=== PATIENT | female | born 1985 | race Caucasian/White ===

== ENCOUNTER 2017-01-02 11:12 | Emergency (ER) | payer OTHER ==
[~2017-01-02] VITALS: Ht 154.9 cm; Wt 76.8 kg
[~2017-01-02 11:12] MED LIST: BACTRIM,SEPT1 TABLET PO; CLEOCIN300 MG PO; DYNAPEN500 MG PO; KEFLEX500 MG PO; METHadone HCl PO; MOTRIN800 MG PO; Motrin PO; NOHOMEMEDS; SERTRALINE HCL100 MG; SUBOXONE 8 M1 TABLET; ULTRAM50 MG PO; oxyCODONE PO
[2017-01-02] MEDS ORDERED: DOXYCYCLINE MO100 MG PO (15:01)
[2017-01-02 15:21] VITALS: BP 132/79
== END 2017-01-02 15:37 | disposition home or self-care (01) ==
LOC: EME 11:12
PROC: 0H9DXZZ Drainage of Right Lower Arm Skin, External Approach (ICD-10-PCS; principal; 2017-01-02)
DX: L02.413 Cutaneous abscess of right upper limb (principal); F17.200 Nicotine dependence, unspecified, uncomplicated
CPT/HCPCS: 99281; 99285; J1885; J7050

== ENCOUNTER 2017-01-27 19:01 | Inpatient (IN) | payer OTHER ==
[~2017-01-27] VITALS: Ht 154.9 cm; Wt 76.5 kg
[~2017-01-27 19:01] MED LIST changes: +DOXYCYCLINE MO100 MG PO
[2017-01-27 19:48] LABS: HEMATOCRIT 40.2 % (36.0-46.0); MCHC 34.8 G/DL (30.0-36.0); MCV 83.2 FL (83-99); MEAN PLAT.VOLUME 9.8 uM^3 (9.5-12.4); PLATELET COUNT 252 K/uL (156-360); RBC DIS.WIDTH-CV 14.6 % (11.8-14.6); RBC DIS.WIDTH-SD 44.1 % (39-53); RED BLOOD COUNT 4.83 M/uL (3.80-5.20); WHITE BLOOD COUNT 7.1 K/uL (4.1-10.2)
[2017-01-27 20:01] LABS: CHLORIDE 98 mEq/L (99-109); POTASSIUM 3.4 mEq/L (3.7-5.4); SODIUM 139 mEq/L (136-147)
[2017-01-27 20:04] LABS: GLUCOSE 112 mg/dL (70-99)
[2017-01-27 20:05] LABS: ANION GAP 14 MEQ/L (2-14)
[2017-01-27 20:06] LABS: TOTAL BILIRUBIN 11.3 mg/dL (0.0-1.0)
[2017-01-27 20:07] LABS: ALKALINE PHOSPHATASE 294 IU/L (3-129); GFR ESTIMATE (CALCULATED) > 59 mL/min/
[2017-01-27 20:08] LABS: UREA NITROGEN (BUN) 7 mg/dL (9-23)
[2017-01-27 20:16] LABS: QUANTITATIVE HCG < 4.0 MIU/ML
[2017-01-27 20:41] LABS: LIPASE 17 U/L (1.0-51.0)
[2017-01-27 21:50] LABS: ADD MIUA? YES; BILIRUBIN NEGATIVE; BLOOD NEGATIVE; COLOR AMBER ((YELLOW)); GLUCOSE (STRIP) NEGATIVE; KETONES NEGATIVE; LEUKOCYTES MODERATE; NITRITE NEGATIVE; PROTEIN (STRIP) NEGATIVE; SPECIFIC GRAVITY 1.005 (1.000-1.030)
[2017-01-27 22:11] LABS: AMORPHOUS URATES CRYSTALS 1+; BACTERIA 1+ /HPF; CALCIUM OXALATE CRYSTALS 1+ /HPF; EPITHELIAL CELLS 2+ /HPF; MUCUS NONE SEEN /LPF; RED BLOOD CELLS 0-5 /HPF (0-5); UCUL ADDED? NO; WHITE BLOOD CELLS 0-5 /HPF (0-5)
[2017-01-28 01:31] LABS: INTER. NORMALIZED RATIO 1.1; PROTHROMBIN TIME 12.4 SEC (10.2-12.9)
[2017-01-28 01:33] LABS: PTT 36.7 SEC (25-37)
[2017-01-28 01:46] LABS: DIRECT BILIRUBIN 7.1 mg/dL (0.0-0.3); SALICYLATE < 5.0 MG/DL (15-30)
[2017-01-28 02:35] VITALS: BP 119/67
[2017-01-28 04:57] LABS: BARBITUATES QUANT VALUE 0 NG/ML; BENZODIAZEPINES QUANT VALUE 0 NG/ML; BENZODIAZEPINES, URINE SCREEN Negative (200 ng/mL); MARIJUANA QUANT VALUE 0 NG/ML; PHENCYCLIDINE QUANT VALUE 0 NG/ML
[2017-01-28 07:05] LABS: HEMATOCRIT 34.7 % (36.0-46.0); MCH 29.3 PG (29.0-34.0); MCHC 34.3 G/DL (30.0-36.0); MCV 85.5 FL (83-99); MEAN PLAT.VOLUME 9.9 uM^3 (9.5-12.4); PLATELET COUNT 206 K/uL (156-360); RBC DIS.WIDTH-CV 15.1 % (11.8-14.6); RBC DIS.WIDTH-SD 47.8 % (39-53); RED BLOOD COUNT 4.06 M/uL (3.80-5.20); WHITE BLOOD COUNT 5.5 K/uL (4.1-10.2)
[2017-01-28 07:09] LABS: INTER. NORMALIZED RATIO 1.1; PROTHROMBIN TIME 12.6 SEC (10.2-12.9)
[2017-01-28 07:43] VITALS: BP 109/59
[2017-01-28 07:52] LABS: ALKALINE PHOSPHATASE 215 IU/L (3-129); ANION GAP 9 MEQ/L (2-14); CHLORIDE 105 MEQ/L (99-109); GFR ESTIMATE (CALCULATED) > 59 mL/min/; GLUCOSE 126 mg/dL (70-99); LIPASE 16 U/L (1.0-51.0); POTASSIUM 3.9 MEQ/L (3.7-5.4); SAMPLE HEMOLYSIS CHECK 0; SAMPLE ICTERIC CHECK 2; SAMPLE LIPEMIA CHECK 0; SERUM ETHYL ALCOHOL < 10 mg/dL; SODIUM 139 MEQ/L (136-147); TOTAL BILIRUBIN 9.4 MG/DL (0.0-1.0); UREA NITROGEN (BUN) 7 mg/dL (9-23)
[2017-01-28 10:26] LABS: HBSG INDEX 0.19
[2017-01-28 10:28] LABS: ANTI-HEPATITIS A VIRUS (IGM) Nonreactive; HAV INDEX 0.19
[2017-01-28 10:29] LABS: ANTI-HEPATITIS B CORE (IGM) Nonreactive; HBC IgM INDEX 0.19
[2017-01-28 11:32] VITALS: BP 118/63
[2017-01-28 16:10] VITALS: BP 117/79
[2017-01-28 19:27] VITALS: BP 137/84
[2017-01-28 23:08] VITALS: BP 117/76
[2017-01-29 05:33] LABS: HEMATOCRIT 36.1 % (36.0-46.0); MCH 28.4 PG (29.0-34.0); MCV 86.2 FL (83-99); PLATELET COUNT 217 K/uL (156-360); RBC DIS.WIDTH-CV 14.9 % (11.8-14.6); RBC DIS.WIDTH-SD 47.7 % (39-53); RED BLOOD COUNT 4.19 M/uL (3.80-5.20)
[2017-01-29 06:18] LABS: ALKALINE PHOSPHATASE 195 IU/L (3-129); ANION GAP 8 MEQ/L (2-14); CHLORIDE 106 MEQ/L (99-109); DIRECT BILIRUBIN 5.2 mg/dL (0.0-0.3); GFR ESTIMATE (CALCULATED) > 59 mL/min/; GLUCOSE 101 mg/dL (70-99); POTASSIUM 4.3 MEQ/L (3.7-5.4); SAMPLE HEMOLYSIS CHECK 0; SAMPLE ICTERIC CHECK 2; SAMPLE LIPEMIA CHECK 0; SODIUM 142 MEQ/L (136-147); TOTAL BILIRUBIN 8.2 MG/DL (0.0-1.0); UREA NITROGEN (BUN) 5 mg/dL (9-23)
[2017-01-29 07:57] VITALS: BP 132/75
[2017-01-30 13:13] LABS: HCV RNA (IU/mL) 25555 IU/mL (<15)
[2017-01-30 22:10] LABS: MITOCHONDRIAL (M2) ANTIBODIES+ <=20.0 U (<=20.0)
[2017-01-31 22:16] LABS: HCV RNA (LOG IU/mL) 4.41 (<1.18)
== END 2017-01-29 13:24 | disposition home or self-care (01) | DRG 442 ==
LOC: EME 19:01 → RME 19:01 → 3EAST 01-28 01:00 → EDOF 01-28 01:00 → ENRESERV 01-28 01:05 → 3EAST 01-28 02:34
PROVIDERS: Hospitalist; Internal Medicine Gastroenterology; Physician Assistant
DX: K72.00 Acute and subacute hepatic failure without coma (principal); B19.20 Unspecified viral hepatitis C without hepatic coma; F11.20 Opioid dependence, uncomplicated; J02.9 Acute pharyngitis, unspecified; R05 Cough; F17.210 Nicotine dependence, cigarettes, uncomplicated
CPT/HCPCS: 71020; 76705; 80048; 80053; 80074; 80076; 80306 90; 81003; 82140; 82248; 82390; 83516 90; 83605; 83690; 84702; 85027; 85610; 85730; 86038; 86256 90; 86376 90; 87522 90; 99281; 99285; G0480; J1644; J7030

== ENCOUNTER 2017-02-06 12:17 | Emergency (ER) | payer OTHER ==
[~2017-02-06] VITALS: Ht 154.9 cm; Wt 76.7 kg
[2017-02-06 13:36] LABS: CHLORIDE 105 mEq/L (99-109); SODIUM 141 mEq/L (136-147)
[2017-02-06 13:38] LABS: GLUCOSE 110 mg/dL (70-99)
[2017-02-06 13:40] LABS: ANION GAP 10 MEQ/L (2-14)
[2017-02-06 13:42] LABS: ALKALINE PHOSPHATASE 135 IU/L (3-129); GFR ESTIMATE (CALCULATED) > 59 mL/min/
[2017-02-06 13:43] LABS: UREA NITROGEN (BUN) 8 mg/dL (9-23)
[2017-02-06 13:45] LABS: HEMATOCRIT 40.9 % (36.0-46.0); MCH 28.6 PG (29.0-34.0); MCV 84.2 FL (83-99); MEAN PLAT.VOLUME 9.5 uM^3 (9.5-12.4); PLATELET COUNT 271 K/uL (156-360); RBC DIS.WIDTH-SD 42.8 % (39-53); RED BLOOD COUNT 4.86 M/uL (3.80-5.20); WHITE BLOOD COUNT 7.7 K/uL (4.1-10.2)
[2017-02-06 13:51] LABS: QUANTITATIVE HCG < 4.0 MIU/ML
[2017-02-06 15:19] LABS: ADD MIUA? NO; BILIRUBIN NEGATIVE; BLOOD NEGATIVE; COLOR YELLOW ((YELLOW)); GLUCOSE (STRIP) NEGATIVE; KETONES NEGATIVE; LEUKOCYTES NEGATIVE; NITRITE NEGATIVE; PROTEIN (STRIP) NEGATIVE; SPECIFIC GRAVITY 1.012 (1.000-1.030); UCUL ADDED? NO; UROBILINOGEN 0.2 MG/DL (0.2-1.0)
[2017-02-06] MEDS ORDERED: ZOFRAN4 MG PO (15:29)
[2017-02-06] MEDS ORDERED: CLONIDINE HCL0.1 MG PO (15:29)
[2017-02-06 16:46] VITALS: BP 132/89
== END 2017-02-06 16:46 | disposition home or self-care (01) ==
LOC: EME 12:17
PROVIDERS: Emergency Medicine
DX: F11.23 Opioid dependence with withdrawal (principal); R11.2 Nausea with vomiting, unspecified; R19.7 Diarrhea, unspecified; J34.89 Other specified disorders of nose and nasal sinuses; F17.200 Nicotine dependence, unspecified, uncomplicated
CPT/HCPCS: 80053; 81003; 84702; 85027; 99281; 99284; J2765; J7030

== ENCOUNTER 2017-05-28 11:39 | Emergency (ER) | payer OTHER ==
[~2017-05-28] VITALS: Ht 165.1 cm; Wt 69.9 kg
[~2017-05-28 11:39] MED LIST changes: +CLONIDINE HCL0.1 MG PO; +ZOFRAN4 MG PO
[2017-05-28] MEDS ORDERED: NARCAN4 MG NS (12:48)
[2017-05-28 12:58] VITALS: BP 129/88
[2017-05-28 14:38] LABS: HEMATOCRIT 32.3 % (36.0-46.0); HEMOGLOBIN 11.4 G/DL (11.9-15.5); MCH 29.6 PG (29.0-34.0); MCHC 35.3 G/DL (30.0-36.0); MCV 83.9 FL (83-99); PLATELET COUNT 143 K/uL (156-360); RBC DIS.WIDTH-CV 12.1 % (11.8-14.6); RBC DIS.WIDTH-SD 36.9 % (39-53); RED BLOOD COUNT 3.85 M/uL (3.80-5.20); WHITE BLOOD COUNT 7.5 K/uL (4.1-10.2)
[2017-05-28 14:47] LABS: CHLORIDE 104 mEq/L (99-109); POTASSIUM 3.9 mEq/L (3.7-5.4); SODIUM 138 mEq/L (136-147)
[2017-05-28 14:48] LABS: GLUCOSE 113 mg/dL (70-99)
[2017-05-28 14:52] LABS: CREATININE 0.7 mg/dL (0.6-1.3); GFR ESTIMATE (CALCULATED) > 59 mL/min/
[2017-05-28 14:53] LABS: UREA NITROGEN (BUN) 10 mg/dL (9-23)
[2017-05-28 15:00] LABS: QUANTITATIVE HCG < 4.0 MIU/ML
[2017-05-28] MEDS ORDERED: ADDERALL XR 3030 MG PO (19:35)
== END 2017-05-28 14:57 | disposition home or self-care (01) ==
LOC: EME 11:39
PROVIDERS: Emergency Medicine
DX: T40.1X1A Poisoning by heroin, accidental (unintentional), initial encounter (principal); F32.9 Major depressive disorder, single episode, unspecified; F17.200 Nicotine dependence, unspecified, uncomplicated
CPT/HCPCS: 71045; 80048; 84702; 85027; 93005; 99281; 99285; J2310

== ENCOUNTER 2017-05-28 17:30 | Inpatient (IN) | payer OTHER ==
[~2017-05-28] VITALS: Ht 172.7 cm; Wt 69.5 kg
[~2017-05-28 17:30] MED LIST changes: +NARCAN4 MG NS
[2017-05-28 17:51] LABS: HEMATOCRIT 37.9 % (36.0-46.0); HEMOGLOBIN 13.3 G/DL (11.9-15.5); MCH 29.4 PG (29.0-34.0); MCHC 35.1 G/DL (30.0-36.0); MCV 83.8 FL (83-99); PLATELET COUNT 171 K/uL (156-360); RBC DIS.WIDTH-SD 36.7 % (39-53); RED BLOOD COUNT 4.52 M/uL (3.80-5.20); WHITE BLOOD COUNT 9.2 K/uL (4.1-10.2)
[2017-05-28 18:01] LABS: CHLORIDE 100 mEq/L (99-109); POTASSIUM 3.9 mEq/L (3.7-5.4); SODIUM 137 mEq/L (136-147)
[2017-05-28 18:03] LABS: GLUCOSE 93 mg/dL (70-99)
[2017-05-28 18:06] LABS: SERUM ETHYL ALCOHOL < 10 mg/dL
[2017-05-28 18:07] LABS: CREATININE 0.8 mg/dL (0.6-1.3); GFR ESTIMATE (CALCULATED) > 59 mL/min/
[2017-05-28 18:08] LABS: UREA NITROGEN (BUN) 10 mg/dL (9-23)
[2017-05-28 18:16] LABS: QUANTITATIVE HCG < 4.0 MIU/ML
[2017-05-28] MEDS ORDERED: ADDERALL XR 3030 MG PO (19:35)
[2017-05-28 20:11] VITALS: BP 122/58
[2017-05-28 20:26] VITALS: BP 104/56
[2017-05-29 07:37] VITALS: BP 93/54
[2017-05-29 15:42] VITALS: BP 94/50
[2017-05-30 07:37] VITALS: BP 84/46
[2017-05-30 10:19] VITALS: BP 84/47
[2017-05-30 16:04] VITALS: BP 108/56
[2017-05-31 07:34] VITALS: BP 109/58
[2017-05-31 16:33] VITALS: BP 109/56
[2017-06-01 07:49] VITALS: BP 90/58
== END 2017-06-01 09:58 | disposition other institution (70) | DRG 897 ==
LOC: EME 17:30 → EDOF 19:19 → 1WEST 19:19 → ENRESERV 20:05 → 1WEST 20:06
PROVIDERS: Emergency Medicine
PROC: HZ2ZZZZ Detoxification Services for Substance Abuse Treatment (ICD-10-PCS; principal; 2017-05-29)
DX: F11.23 Opioid dependence with withdrawal (principal); F41.9 Anxiety disorder, unspecified; F32.9 Major depressive disorder, single episode, unspecified; G47.00 Insomnia, unspecified; T40.1X1A Poisoning by heroin, accidental (unintentional), initial encounter; F17.210 Nicotine dependence, cigarettes, uncomplicated; Z56.0 Unemployment, unspecified
CPT/HCPCS: 71046; 80048 91; 84702; 85027; 90837; 99281; 99285; G0480; J0572; Q0169; Q0177

== ENCOUNTER 2017-12-01 15:17 | Inpatient (IN) | payer OTHER ==
[~2017-12-01] VITALS: Ht 154.9 cm; Wt 75.3 kg
[~2017-12-01 15:17] MED LIST changes: +ADDERALL XR 3030 MG PO
[2017-12-01] MEDS ORDERED: GABAPENTIN600 MG PO (17:09)
[2017-12-01 17:24] LABS: ALBUMIN 4.1 g/dL (3.2-4.8); CHLORIDE 100 mEq/L (99-109); POTASSIUM 3.6 mEq/L (3.7-5.4); SODIUM 136 mEq/L (136-147)
[2017-12-01 17:26] LABS: GLUCOSE 156 mg/dL (70-99); TOTAL PROTEIN 7.6 g/dL (6.4-8.3)
[2017-12-01 17:28] LABS: HEMATOCRIT 38.2 % (36.0-46.0); HEMOGLOBIN 13.5 G/DL (11.9-15.5); MCH 28.7 PG (29.0-34.0); MCHC 35.3 G/DL (30.0-36.0); MCV 81.3 FL (83-99); PLATELET COUNT 291 K/uL (156-360); RBC DIS.WIDTH-CV 12.6 % (11.8-14.6); RBC DIS.WIDTH-SD 37.5 % (39-53); TOTAL BILIRUBIN 1.4 mg/dL (0.0-1.0); WHITE BLOOD COUNT 10.3 K/uL (4.1-10.2)
[2017-12-01 17:30] LABS: ALKALINE PHOSPHATASE 113 IU/L (3-129); CREATININE 0.9 mg/dL (0.6-1.3); GFR ESTIMATE (CALCULATED) > 59 mL/min/
[2017-12-01 17:31] LABS: UREA NITROGEN (BUN) 9 mg/dL (9-23)
[2017-12-01 17:32] LABS: AST (GOT) 84 IU/L (2-34)
[2017-12-01 17:33] LABS: ALT (GPT) 221 IU/L (3-49)
[2017-12-01 17:44] LABS: QUANTITATIVE HCG < 4.0 MIU/ML
[2017-12-01 21:05] VITALS: BP 108/63
[2017-12-02 00:36] VITALS: BP 109/71
[2017-12-02 04:00] VITALS: BP 127/96
[2017-12-02 06:46] LABS: BASOPHIL (%) 0.3 % (0-1); EOSINOPHIL (%) 4.5 % (0-5); EOSINOPHIL COUNT 0.3 K/uL (0-0.3); HEMATOCRIT 36.5 % (36.0-46.0); HEMOGLOBIN 12.5 G/DL (11.9-15.5); IMMATURE GRANULOCYTE (%) 0.4 % (0.0-0.7); LYMPHOCYTE (%) 42.3 % (15-42); MCH 28.8 PG (29.0-34.0); MCHC 34.2 G/DL (30.0-36.0); MCV 84.1 FL (83-99); MONOCYTE (%) 9.9 % (3-12); MONOCYTE COUNT 0.7 K/uL (0-0.8); NEUTROPHIL (%) 42.6 % (45-76); NEUTROPHIL COUNT 3.1 K/uL (1.8-6.4); PLATELET COUNT 240 K/uL (156-360); RBC DIS.WIDTH-CV 12.8 % (11.8-14.6); RBC DIS.WIDTH-SD 39.1 % (39-53); RED BLOOD COUNT 4.34 M/uL (3.80-5.20); WHITE BLOOD COUNT 7.2 K/uL (4.1-10.2)
[2017-12-02 07:20] LABS: CHLORIDE 107 MEQ/L (99-109); CREATININE 0.9 MG/DL (0.6-1.3); GFR ESTIMATE (CALCULATED) > 59 mL/min/; GLUCOSE 112 mg/dL (70-99); POTASSIUM 4.1 MEQ/L (3.7-5.4); SODIUM 141 MEQ/L (136-147); UREA NITROGEN (BUN) 13 mg/dL (9-23)
[2017-12-02 07:33] VITALS: BP 131/83
== END 2017-12-02 21:14 | disposition left against medical advice (07) | DRG 603 ==
LOC: EME 15:17 → CANRESERV 17:13 → 5SOUTH 18:29 → EDOF 18:29 → ENRESERV 19:02 → 5SOUTH 19:52
PROVIDERS: Hospitalist; Nurse Practitioner Family
DX: L03.114 Cellulitis of left upper limb (principal); L02.414 Cutaneous abscess of left upper limb; B18.2 Chronic viral hepatitis C; F31.9 Bipolar disorder, unspecified; F32.9 Major depressive disorder, single episode, unspecified; F41.9 Anxiety disorder, unspecified; Z53.21 Procedure and treatment not carried out due to patient leaving prior to being seen by health care provider; W27.8XXA Contact with other nonpowered hand tool, initial encounter; F17.200 Nicotine dependence, unspecified, uncomplicated; F11.20 Opioid dependence, uncomplicated; F17.210 Nicotine dependence, cigarettes, uncomplicated; F14.90 Cocaine use, unspecified, uncomplicated
CPT/HCPCS: 80048; 80053; 83605; 84702; 85025; 85027; 85651; 86140; 87040; 87070; 87075; 87076; 87205; 99281; 99285; J1885; J2543; J3370; J7030; J7050